=== PATIENT | female | born 1930 | race Caucasian/White ===

== ENCOUNTER 2020-04-25 08:59 | Inpatient (IN) | payer OTHER ==
[~2020-04-25] VITALS: Ht 162.6 cm; Wt 72.6 kg
--- NOTE | ~2020-04-25 | EMS ---
[address] [address] EMS Patient Care Report Name: BINA RUEDA Room #: 170-3 ADM IN M.R.#: [id number] Admission: 04/25/20 Attend Phys: Jered Lau MD Discharge: Date of : [birth year] Report #: [id number] THIS REPORT FOR: //name// Report Transmitted: 04/25/2020 15:32 EMS Care Summary [facility] MED-ACT Incident [id number] @ 04/25/2020 08:20 Incident Location [id number] [place] [address] Patient BINA RUEDA Female, 89 Years 1930 Patient Address [address] [place] [address] Patient History Type 2 Diabetes, Patient Allergies Penicillin allergy, Patient Medications Eliquis, Atorvastatin, Chief Complaint "I hurt my back." Disposition Transported No Lights/Todd Dispatch Reason Falls Transported To [facility] Narrative Upon arrival to the scene, found the pt in the care of air liaison and special staff and sitting in a wheelchair outside her room. Pt informed crews that she was sitting on the [address] [address] EMS Patient Care Report Name: BINA RUEDA Room #: 170-3 ADM IN Mahi.#: [id number] Admission: 04/25/20 Attend Phys: Jered Lau MD Discharge: Date of : [birth year] Report #: [id number] edge of her bed and slid off. She c/o lower back pain. Staff found the pt supine on the floor when the came in to check on her. Pt was not on the floor for very long. Pt denied any loss of consciousness. Pt denied any head or neck pain. Pt denied hitting her head. Pt was assessed and assisted from the wheelchair to the stretcher. V/S obtained. Pt was secured to the stretcher. Stretcher was secured in ambulance. [facility]OM to [facility] with pt information only. Upon arrival to [facility], pt was taken to room 3 via stretcher. Pt was transferred from stretcher to hospital bed via sheet drag. Verbal report given to RN and transfer of care was completed. Initial Vitals @08:37P: 46,SpO2: 95, @08:42P: 195,SpO2: 97, @08:43P: 106,BP: 110/62,SpO2: 97, @08:38P: 58,R: 16,BP: 124/65,Pain: 4/10,GCS: 15,Temp: 98F,SpO2: 93,Revised Trauma: 12, @08:42P: 95,SpO2: 97, @08:42P: 167, Assessments @08:33MENTAL:No Abnormalities,SKIN:HEENT:Head/Face: No Abnormalities,Neck/Airway: No Abnormalities,LUNG SOUNDS:ABDOMEN:PELVIS//GI:EXTREMITIES:PULSE:NEURO:No Abnormalities, Impression Back Pain Procedures @08:36Surgical Mask on PatientResponse: Unchanged Timeline 08:19,Call Received 08:19,Psap Call 08:20,Dispatched 08:22,En Route 08:27,On Scene 08:31,At Patient 08:36,Surgical Mask on Patient,Response: Unchanged 08:37,BP: / M,PULSE: 46,RR: R,SPO2: 95 Ox,ETCO2: ,BG: ,PAIN: ,GCS: , 08:38,BP: 124/65 M,PULSE: 58,RR: 16 R,SPO2: 93 Ox,ETCO2: ,BG: ,PAIN: 4,GCS: 15, 08:39,Depart Scene 08:42,BP: / M,PULSE: 195,RR: R,SPO2: 97 Ox,ETCO2: ,BG: ,PAIN: ,GCS: , 08:42,BP: / M,PULSE: 167,RR: R,SPO2: Ox,ETCO2: ,BG: ,PAIN: ,GCS: , 08:42,BP: / M,PULSE: 95,RR: R,SPO2: 97 Ox,ETCO2: ,BG: ,PAIN: ,GCS: , [facility] [address] [place] [address] EMS Patient Care Report Name: BINA RUEDA Room #: 170-3 ADM IN M.R.#: [id number] Admission: 04/25/20 Attend Phys: Jered Lau MD Discharge: Date of : [birth year] Report #: [id number] 08:43,BP: 110/62 M,PULSE: 106,RR: R,SPO2: 97 Ox,ETCO2: ,BG: ,PAIN: ,GCS: , 08:53,At Destination 09:11,Call Closed Disclaimer v1.1 Copyright 2020 [employer] This EMS Care Summary contains data elements from the applicable legal record (which may be displayed differently). It is designed to provide pertinent information for the following purposes: continuity of care, clinical quality, and state data reporting. The complete legal record is available to ED staff and administrators of the receiving hospital in [employer] Patient Tracker. All data is provided "as is."
[~2020-04-25 08:59] MED LIST: ADULT LOW DOSE81 MG PO; B-COMPLEX-VITA1 EACH PO; COLACE100 MG PO; COZAAR 50 MG TA50 M2 PO; COZAAR100 MG PO; DIABETA 5MG TABL5 MG PO; DIOVAN HCT 3201 EAC1; GLIPIZIDE ER5 MG PO; GLUCOPHAGE1000 MG PO; GLUCOPHAGE500 MG PO; GLUCOTROL5 MG PO; HIBICLENS120 ML TP; HYDREA 500 MG500 M1 PO; HYDREA500 MG PO; LEVOTHYROXIN0.025 MG PO; LIPITOR10 MG PO; LISINOPRIL-HCT1 EACH PO; METOCLOPRAMIDE10 MG PO; MIRALAX17 GM PO; MOBIC7.5 M1 PO; MOBIC7.5 MG PO; MOM; NEURONTIN 300300 M1 PO; PRESERVISION L1 EACH PO; PROTONIX40 M1 PO; PROZAC 20 MG20 MG PO; SENOKOT-S1 TA1 PO; SIMVASTATIN40 MG PO; TRIAMCINOLONE A15 G1 TP; UREA CREAM 40%1 TUBE TP; ZOCOR 10 MG TAB10 MG PO
[2020-04-25 09:01] VITALS: BP 143/77
[2020-04-25] MEDS ORDERED: NOVOLOG100 UNIT/M SUBQ (09:58)
[2020-04-25] MEDS ORDERED: LIPITOR10 MG PO (09:59)
[2020-04-25] MEDS ORDERED: VITAMIN D21250 MC1 PO (09:59)
[2020-04-25] MEDS ORDERED: NORVASC5 MG PO (10:13)
[2020-04-25] MEDS ORDERED: VITAMIN C500 M1 PO (10:14)
[2020-04-25] MEDS ORDERED: CARVEDILOL12.5 MG PO (10:14)
[2020-04-25] MEDS ORDERED: NEURONTIN300 MG PO (10:14)
[2020-04-25] MEDS ORDERED: LEVEMIR100 UNIT/1 SUBQ (10:15)
[2020-04-25] MEDS ORDERED: BIOFREEZE118 ML TOP (10:15)
[2020-04-25 10:43] LABS: URINE BILIRUBIN NEGATIVE (Negative); URINE BLOOD NEGATIVE (Negative); URINE CLARITY CLEAR; URINE COLOR YELLOW; URINE GLUCOSE-RANDOM* 1+ (Negative); URINE KETONES 1+ (Negative); URINE LEUKOCYTES-REFLEX NEGATIVE (Negative); URINE NITRITE-REFLEX NEGATIVE (Negative); URINE PROTEIN (DIPSTICK) TRACE (Negative); URINE SPECIFIC GRAVITY 1.015 (1.005-1.035); URINE UROBILINOGEN 0.2 E.U./dl (0.2-1.0)
[2020-04-25 10:52] LABS: ABSOLUTE NEUTROPHILS 12.9 thou/uL (1.4-8.2); BASOPHILS 0.6 % (0.0-2.0); EOSINOPHILS 1.1 % (0.0-3.0); HEMATOCRIT 46.4 % (37.0-47.0); HEMOGLOBIN 15.3 gm/dL (12.0-15.0); LYMPHOCYTES 5.6 % (24.0-44.0); MCH 28.1 pg (26.0-34.0); MCHC 33.1 g/dL (28.0-37.0); MCV 84.9 fL (80.0-100.0); MONOCYTES 4.8 % (1.0-8.0); PLATELET COUNT 431 thou/uL (150-400); POLYS 87.9 % (36.0-66.0); RBC 5.46 mil/uL (4.20-5.00); RDW 16.1 % (10.5-14.5); WBC 14.7 thou/uL (4.0-11.0)
[2020-04-25 11:38] LABS: CALCIUM 9.4 mg/dL (8.5-10.1); CREATININE 1.6 mg/dL (0.6-1.0); POTASSIUM 3.4 mmol/L (3.5-5.1)
[2020-04-25 11:44] LABS: ALBUMIN 3.7 g/dL (3.4-5.0); TOTAL BILIRUBIN 0.7 mg/dL (0.2-1.0); TOTAL PROTEIN 6.8 g/dL (6.4-8.2)
[2020-04-25 14:06] LABS: CSF GLUCOSE 87 mg/dL (40-70)
[2020-04-25 14:25] LABS: CSF CLARITY CLEAR; CSF COLOR COLORLESS; CSF RBC 0 /mm3; CSF WBC 2 /mm3 (0-10); VOLUME 6 ml
--- NOTE | 2020-04-25 14:54 | NUR ---
89 year old female admitted via EMS from [facility] for an accidental slip and fall out of bed. She was moving for the wheelchair and missed and ended up hitting her bottom on the ground. She complains of low back pain. This is not a new complaint for her as she does have chronic low back pain but the fdc wanted her evaluated. Patient complains of moderate to severe continuous low back pain made worse with palpation. The patient has been admitted with Encephalopathy, Back contusion, Leukocytosis, Recurrent falls, ARF and Hypokalemia. COVID 19 Antigen NEGATIVE on 04-25-1149 and COVID 19 PRC pending on 04-25-20 at 1151. Lumbar puncture obtained after request from the hospitalist while in the ED. NOTE: PT/OT/DICTATING MACHINE TYPIST orders in on 04-25-20. Because of elevated HR and WBC rate patient was placed on IV ABT's and IV fluids. The authorized contact is the daughter Yamini Olson at [phone]. Called and spoke with Yamini and introduced role of case management. Plan to return to [facility] as probable skilled first prior to return to LTC. CM will follow for discharge needs.
[2020-04-25 15:14] LABS: FOLIC ACID 10.3 ng/mL (8.6-58.9)
--- NOTE | 2020-04-25 20:05 | NUR ---
UPON TAKING OVER PATIENT, REYNA CATHETER NOTED IN PLACE
[2020-04-25 21:56] VITALS: BP 105/86
--- NOTE | 2020-04-25 21:57 | NUR ---
HAND OFF TOOL SENT
--- NOTE | 2020-04-25 22:03 | NUR ---
PER GUSTAVO, MRI CAN WAIT FOR TOMORROW DAY SHIFT. SOCIAL WORK LECTURER NOTIFIED
[2020-04-25 22:49] VITALS: BP 105/86
[2020-04-25 23:04] VITALS: BP 146/71
--- NOTE | 2020-04-26 03:24 | NUR ---
Pt. admission and history is completed as best that can be. Pt. is disoriented times four and thus is a poor historian. She has been awake all night and will talk outloud at people that are not in the room. She also tries to scoot herself out of the bed. Pt. has been observed putting her legs up over or throuigh the siderails. Bilateral restraints in place and bed alarm is on.
[2020-04-26 05:48] LABS: ABSOLUTE NEUTROPHILS 11.8 thou/uL (1.4-8.2); BASOPHILS 0.6 % (0.0-2.0); EOSINOPHILS 0.5 % (0.0-3.0); HEMOGLOBIN 14.2 gm/dL (12.0-15.0); LYMPHOCYTES 8.8 % (24.0-44.0); MCH 27.7 pg (26.0-34.0); MCHC 32.3 g/dL (28.0-37.0); MCV 85.8 fL (80.0-100.0); MONOCYTES 4.9 % (1.0-8.0); PLATELET COUNT 414 thou/uL (150-400); POLYS 85.2 % (36.0-66.0); RBC 5.13 mil/uL (4.20-5.00); RDW 16.5 % (10.5-14.5); WBC 13.9 thou/uL (4.0-11.0)
[2020-04-26 05:56] LABS: CALCIUM 8.9 mg/dL (8.5-10.1); CREATININE 1.4 mg/dL (0.6-1.0); POTASSIUM 3.4 mmol/L (3.5-5.1)
--- NOTE | 2020-04-26 06:52 | NUR ---
Pt. arrived to the unit from the emergency department in soft wrist restraints. She is disoriented times four and is very restless. Bed alarm is on.
[2020-04-26 07:20] VITALS: BP 150/84
--- NOTE | 2020-04-26 12:06 | HC ---
[facility] [place] [place] [address] CONSULTATION Name: BINA RUEDA Room #: 451-P ADM IN M.R.#: [id number] Admission: 04/25/20 Attend Phys: Jered Lau MD Discharge: Date of : [birth year] Report #: [id number] THIS REPORT FOR: cc: Abhilash Cobian MD,Abhilash Toscano,Luis Miguel Rodriguez MD ~ DATE OF SERVICE: 04/25/2020 CHIEF COMPLAINT: Lower extremity ulcerations. HISTORY OF PRESENT ILLNESS: This is an 89-year-old female patient who was admitted to the Emergency Department. She has had a slip and fall out of bed. She is moving from a wheelchair and missed and ended up falling on the floor. She has had some change in her mental status that her daughter thought had occurred over the last 2 weeks. She is normally alert, conversant and is now slurring her speech and not tracking conversation. I have been asked to see her with regard to wound care, both lower legs, left heel and left elbow. PAST MEDICAL HISTORY: Positive for history of small-bowel obstruction in September of 2010, history of pancreatitis, hypertension, coronary artery disease, status post cardiac bypass with a valve replacement, type 2 diabetes mellitus, previous hysterectomy, appendectomy, and cholecystectomy. MEDICATIONS: Include Senokot, insulin, vitamin B12, Lipitor, Norvasc, Coreg, vitamin C, Neurontin, Levemir, and Biofreeze. ALLERGIES: LATEX, PENICILLIN, SULFA, AND HYDROCODONE. SOCIAL HISTORY: The patient lives in a nursing care facility. No current history of alcohol or tobacco use. FAMILY HISTORY: Noncontributory. REVIEW OF SYSTEMS: Limited as the patient is unable to really provide any specific details other than what is already included in the history of present illness due to her change in mental status. PHYSICAL EXAMINATION: VITAL SIGNS: At this time include temperature 36.6, pulse 82, respiratory rate 16, and blood pressure 155/76. GENERAL: This is a somewhat chronically ill-appearing female patient who appears to be in mild discomfort. HEENT: Head normocephalic, atraumatic. Nose and throat clear. NECK: Supple. LUNGS: Clear. [facility] [address] [place] [address] CONSULTATION Name: BINA RUEDA [facility] ..#: [id number] Admission: 04/25/20 Attend Phys: Jered Lau MD Discharge: Date of : [birth year] Report #: [id number] ABDOMEN: Soft. Incision in the perineal region demonstrates ulceration. This area is wet and she is incontinent of urine. There is yeast dermatitis in the skin folds of the perineal area. Sacral gluteal areas are clear without ulceration. EXTREMITIES: Lower extremities demonstrate trace edema. She has 2 ulcerations to the right pretibial region and 1 to the left. These may be traumatic in origin. They are healthy, clean, granulating and relatively shallow. She also has a small ulceration on her left heel that may be pressure related versus possibly traumatic. She also has an abrasion and contusion to the left elbow. None of these areas are infected. NEUROLOGIC: The patient is awake. She is disoriented. She appears to be moving symmetrically. LABORATORY DATA: Laboratory studies include sodium is 139, potassium 3.4, chloride 104, CO2 of 26, BUN 17, creatinine 1.6, and glucose 113. Albumin is 3.7. White blood cell count 14.7 with a hemoglobin of 15.3. CLINICAL IMPRESSION: 1. Multiple ulcerations by both pretibial regions and left heel. This may be traumatic versus venous. The heel may be pressure versus once again traumatic. 2. Traumatic wound to the left elbow. 3. Altered mental status, etiology is indeterminate. With elevated white blood cell count one might consider an infectious source. She has possibly very mild cellulitis to the right pretibial region, but I doubt that this would be enough to cause the elevation in her white count. No other change in her mental status. She is being followed and worked up by hospitalist service. 4. Yeast dermatitis to the perineal area. 5. Diabetes mellitus. RECOMMENDATIONS: At this point in time, we will recommend nystatin cream to the perineal region twice daily. Recommend gentamicin ointment, Xeroform, and Kerlix to the ulcers of the lower extremities and left heel. She will need PRAFO boots. We will recommend gentamicin, Xeroform and bordered foam to the left elbow. She will need q. 2 turning and repositioning while in bed. All questions have been answered. I have discussed findings with the patient's daughter who is with her here in the Emergency Department as well. I appreciate being asked to see her in consultation. <ELECTRONICALLY SIGNED> By: Luis Miguel Toscano MD 04/26/20 1206 1704 1819 Luis Miguel Toscano MD /nt
--- NOTE | 2020-04-26 14:43 | NUR ---
PT ADMITTED RELATED TO AMS AND FALL. CM REVIEWED CHART AND SPOKE WITH CARE TEAM. CM CALLED AND SPOKE WITH PT'S DTR/DPOA KENNY AYALA THIS DAY. SHE INDICATED THAT SHE AND HER SISTER JAYA ARE BOTH LISTED DPOA. SHE PROVIDED COPY OF DOCUMENT. PLACED IN CHART AND FAXED TO [facility] THEY HAD LOST IT. DTR INDICTED THAT PT HAD BEEN WC BOUND WAX MOLDER AND NEEDED ASSIST WITH TRANSFERS WAX MOLDER. SHE INDICATED THAT PT HAD BEEN A&O X3-4 MOST OF THE TIME. DTR INDICATED THAT SHE HAD PAID FOR A PRIVATE NURSE TO BE WITH PT IN THE PAST BUT HAD STOPPED DUE TO COVID. DTR EXPRESSED SOME FRUSTRATION WITH [facility] AND THAT SHE WILL FOLLOW UP WITH THE STAFF THERE TO ADDRESS ISSUES. SHE ANTICIPATES PT RETURNING THERE ONCE MEDICALLY STABLE. CLINICAL UPDATE SENT TO FACILITY. PT HAD MRI AND EEG DONE THIS DAY. CM TO FOLLOW INDICATED WITH DC PLANNING.
--- NOTE | 2020-04-26 14:53 | HC ---
[facility] [place] [address] [place] [address] CONSULTATION Name: MARYBETHEDUIN BLANCHARDFADY Linder Room #: 451-P ADM IN M.R.#: [id number] Admission: 04/25/20 Attend Phys: Jered Lau MD Discharge: Date of : [birth year] Report #: [id number] THIS REPORT FOR: cc: Abhilash Cobian MD,Abhilash Adrian,Dereck Riley MD ~ DATE OF SERVICE: 04/25/2020 HISTORY OF PRESENT ILLNESS: This is an 89-year-old female patient who was evaluated for altered mental status. This patient is completely confused and is unable to provide any history. She is talking completely irrelevantly. I briefly talked to Dr. Lau and we will talk to him tomorrow again, that conversation was before I saw the patient. The patient as per records [facility] and she had multiple falls recently. She did hit her head. She had some hematoma there. Prior to that, she was not having altered mental status like this. REVIEW OF SYSTEMS: I called the patient's daughter and took part of the review of systems from her and part from the records. She has a history of pancreatitis, hypertension, coronary artery bypass, colon cancer. Colon cancer really put her down. She has a history of hypothyroidism. She has a rash in the leg, which according to the daughter is going on for some time and is nothing new. She denies any history of Alzheimer disease. Review of systems indicates recurrent fall and this was relevant 14-point review of systems. She does have a history of hypertension, rotator cuff tear, thrombocytopenia, cholecystectomy, hysterectomy, diabetes, bypass surgery. PAST MEDICAL HISTORY: Negative for any Alzheimer disease, in fact she had multiple infections including Staph infections in the past. FAMILY HISTORY: Unremarkable. SOCIAL HISTORY: She was never a drinker or smoker according to the daughter. PHYSICAL EXAMINATION: The patient's examinations indicate that she is alert, but she is talking completely irrelevantly. She appeared to be euphoric. She does not know what month it is. She does not follow any commands for me to do any good neurological examination. I tried cranial nerve and neuromuscular examination that was almost impossible to carry out. Cardiac and respiratory examinations appear noncontributory. She did have a CT and I reviewed that and that showed atrophy. GFR is only 30, but it has been low as far as back in 2012. There is nothing new. IMPRESSION: Very difficult to form in this patient. She has no contraindication for MRI. Initially, we will do an MRI of the brain to see if [address] [address] CONSULTATION Name: BINA RUEDA Room #: 451-P [facility] IN ..#: [id number] Admission: 04/25/20 Attend Phys: Jered Lau MD Discharge: Date of : [birth year] Report #: [id number] she has any stroke, which can cause Wernicke's aphasia, but I am not sure if she is typical for that either. I need to get an EEG to make sure there is no seizure activity. We will check her vitamins and go ahead and give her some extra vitamins. Because of ____ and I tried to counseling aide the patient on everything, but she was not able to understand. Therefore, I called the patient's daughter and counseled her and she is agreeable with this test. In fact, she is pretty concerned. I spent more than 50 minutes of time today taking care of this patient and majority was spent reviewing her records, counseling, and coordinating. <ELECTRONICALLY SIGNED> By: Dereck Adrian MD 04/26/20 145 58 21 Dereck Adrian MD /nt
--- NOTE | 2020-04-26 19:22 | NUR ---
Patient was pleasant today. Restraints removed this morning. Was alerted to self, but did have jumbled speech when speaking of situation and place. Patient did have moments of clarity, with moments of being able to make needs known. Patient did shift occassionally in bed, however did not attempt to get out of the bed. Medications were given to calm patient prior to MRI. Medication did cause patient to be lethargic and tired for most the day. She did wake towards end of shift and was able to make needs known. Wound care completed with pictures taken. Need order for heel protector boots bilaterally.
--- NOTE | 2020-04-27 04:01 | NUR ---
Pt. rested quietly during the night when checked on during frequent rounds. She still continues to be confused. Has not attempted to get up out of the bed. Bed alarm is on.
--- NOTE | 2020-04-27 07:25 | EKG ---
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: kranthi : [id number] Requested By: Amita Nunez Order Number: [id number] MD: Camilo Simon Measurements Intervals [place] Rate: 77 P: 46 AL: 179 QRS: -38 QRSD: 76 T: QT: 430 QTc: 487 Interpretive Statements Sinus rhythm Multiple premature complexes, vent & supraven Left axis deviation Anterior infarct, old Nonspecific T abnormalities, lateral leads No previous ECG available for comparison Electronically Signed On 04-27-2020 7:25:15 CERTIFIED DIETARY MANAGER by Camilo Smion [email or web address] <ELECTRONICALLY SIGNED> By: Camilo Simon MD, [facility] 04/27/2025 150 01 Camilo Simon MD, [facility] /EPI
[2020-04-27 07:36] VITALS: BP 120/61
[2020-04-27 10:01] LABS: HEMATOCRIT 45.1 % (37.0-47.0); HEMOGLOBIN 13.9 gm/dL (12.0-15.0); MCH 27.3 pg (26.0-34.0); MCHC 30.9 g/dL (28.0-37.0); MCV 88.7 fL (80.0-100.0); RBC 5.08 mil/uL (4.20-5.00); WBC 13.9 thou/uL (4.0-11.0)
[2020-04-27 10:10] LABS: CALCIUM 8.9 mg/dL (8.5-10.1); POTASSIUM 3.6 mmol/L (3.5-5.1)
--- NOTE | 2020-04-27 11:15 | NUR ---
WOUND CARE F/U; ROUNDING WITH MICHAEL GODFREY. THE EXTREMITY AND WOUNDS SHOW IMPROVMENT TODAY. THE GROIN SHOWS IMPROVEMENT WELL USING NYSTATIN. THE LEFT ELBOW HAS IMPROVED WELL. RECOMMENDATIONS; CONTINUE CURRENT ORDERS WITH GENTAMYCIN OINTMENT, XEROFORM, ABD, KERLIX. DISCUSSED WITH BRANDEE
--- NOTE | 2020-04-27 15:09 | NUR ---
CARE TEAM INDICATED THAT PT IS PROGRESSING TOWARD GOAL OF DISCHARGE. PT CONTINUES ON IV CEFTRIAXONE. PT AND OT SAW PT THIS DAY. PLAN IS FOR PT TO RETURN TO [facility] ONCE MEDICLALLY STABLE. CM TO FOLLOW INDICATED WITH DC PLANNING.
[2020-04-27] MEDS ORDERED: ELIQUIS5 MG PO (16:10)
--- NOTE | 2020-04-27 16:15 | NUR ---
ASSUMED CARE OF PATIENT AT SHIFT CHANGE. ASSESSMENT CHARTED. MEDICATIONS ADMINISTERED PER EMAR. VSS. PATIENT IS ALERT TO SELF AND PLACE; PLEASANT AND COOPERATIVE. PT/OT WORKED W THIS PATIENT AND TOLERATED WELL. PATIENT IS X1 ASSIST AND REQUIRES PROMPTS. IV ABX STILL INFUSING W NO ISSUES. WOUND CARE COMPLETE BY WOUND CARE NURSE. PATIENT IS MAKING MEDICAL PROGRESS. FALL PRECAUTIONS IN PLACE; NEAR NURSES STATION. WILL CONTINUE TO MONITOR AND FOLLOW PLAN OF CARE.
[2020-04-27 19:51] VITALS: BP 119/59
--- NOTE | 2020-04-28 04:47 | NUR ---
Assumed pt care at 1900. A/OX3,able to make needs known. C/o pain to feet medicated with Tylenol with relief reported. Dsgs to BLE/Left elbow C/D/I.Pt able to reposition herself in bed as needed w/o assist. Cason patent to DD. Pt placed NPO from midnight for renal ultrasound order.IVF infusing via LAC w/o any problems. Fall precautions in place,frequent checks on pt.
[2020-04-28 05:15] LABS: HEMATOCRIT 38.6 % (37.0-47.0); HEMOGLOBIN 12.3 gm/dL (12.0-15.0); MCHC 31.9 g/dL (28.0-37.0); MCV 87.6 fL (80.0-100.0); RBC 4.41 mil/uL (4.20-5.00); RDW 16.9 % (10.5-14.5); WBC 9.8 thou/uL (4.0-11.0)
[2020-04-28 05:22] LABS: CALCIUM 8.4 mg/dL (8.5-10.1); MAGNESIUM 1.9 mg/dL (1.8-2.4); POTASSIUM 3.4 mmol/L (3.5-5.1)
[2020-04-28 07:13] VITALS: BP 101/53
[2020-04-28] MEDS ORDERED: TRANSDERM-SCOP1 EACH TRANSDERM (08:58)
--- NOTE | 2020-04-28 14:32 | NUR ---
Assumed pt care this am, more alert today. VS stable, was able to stay on the recliner and have her meals, daughter at the bed side. Renal JON done in the am, wound care done and dressing changes done. POC followed with no signs or verbalizations of distress noted.
--- NOTE | 2020-04-28 15:15 | NUR ---
PT HAD RENAL ULTRASOUND DONE THIS DAY. MORGAN MET WITH PT AND DTR AT BEDSIDE THIS DAY. DTR CONFIRMED THAT PLAN IS FOR PT TO RETURN TO [facility] ONCE MEDICALLY STABLE. SHE INDICATED THAT SHE WILL TRY TO SPEAK WITH STAFF AT [facility] TO HAVE THEIR PRIVATE NURSE BE ABLE TO COME INTO FACILITY AGAIN. MORGAN CALLED AND SPOKE WITH [facility]ANCE IN ADMISSIONS AND SHE INDICATED THAT SHE IS ON FOR WEEKEND ADMISSIONS. SHOULD PT BE MEDICALLY STABLE TO [place] TO [facility] THIS WEEKEND CONTACT CHANCE AT FAX: .
--- NOTE | 2020-04-28 15:26 | NUR ---
FAXED CLINICAL UPDATE TO [facility] RECEIVED CONFIRMATION AND LEFT MSG WITH CHANCE IN ADM.
[2020-04-28 16:30] VITALS: BP 107/61
[2020-04-28 20:00] VITALS: BP 110/67
[2020-04-29 06:26] LABS: CALCIUM 8.3 mg/dL (8.5-10.1); CREATININE 1.6 mg/dL (0.6-1.0); POTASSIUM 3.3 mmol/L (3.5-5.1)
--- NOTE | 2020-04-29 06:50 | NUR ---
VSS-AFEBRILE. LUNGS CLEAR-ROOM AIR. FORGETFUL BUT PLEASANT AND COMPLIANT. TURNS SELF IN BED. FALL PRECAUTIONS IN PLACE.
[2020-04-29 07:13] VITALS: BP 101/53
[2020-04-29 16:00] VITALS: BP 134/82
--- NOTE | 2020-04-29 18:15 | NUR ---
Assumed pt care this am, Vs stable. wound care and dressing change done. Pain is managed with medications. Sat atthe recliner for most of the day, FC in place draining light yellow urine. Daughter at the bedside, POC followed with no signs or verbalizations of distress noted. Endorsed to the night nurse.
--- NOTE | 2020-04-30 07:24 | NUR ---
VSS-AFEBRILE. RESTED WELL THROUGH NIGHT WITH FEW NEEDS. SPORADIC CONFUSION, PULLED OUT IV THIS MORNING. LUNGS CLEAR-ROOM AIR. FALL PRECCAUTION IN PLACE.
[2020-04-30 07:58] VITALS: BP 113/76
[2020-04-30 08:26] LABS: ABSOLUTE NEUTROPHILS 6.4 thou/uL (1.4-8.2); BASOPHILS 1.2 % (0.0-2.0); EOSINOPHILS 5.3 % (0.0-3.0); MCH 28.7 pg (26.0-34.0); MCHC 34.1 g/dL (28.0-37.0); MCV 84.1 fL (80.0-100.0); MONOCYTES 5.7 % (1.0-8.0); PLATELET COUNT 457 thou/uL (150-400); POLYS 77.8 % (36.0-66.0); RBC 4.88 mil/uL (4.20-5.00); RDW 16.7 % (10.5-14.5); WBC 8.2 thou/uL (4.0-11.0)
[2020-04-30 09:05] LABS: CALCIUM 8.9 mg/dL (8.5-10.1); CREATININE 1.3 mg/dL (0.6-1.0); MAGNESIUM 1.8 mg/dL (1.8-2.4); POTASSIUM 3.4 mmol/L (3.5-5.1); TOTAL BILIRUBIN 0.5 mg/dL (0.2-1.0); TOTAL PROTEIN 6.4 g/dL (6.4-8.2)
[2020-04-30 15:29] VITALS: BP 127/77
--- NOTE | 2020-04-30 18:38 | NUR ---
PT A&OX2-3 AND SUNDOWNS, VSS, NO APPARENT PAIN. DRESSING CHANGE COMPLETED. REYNA INTACT. NEW IV PLACED RIGHT FA. PATIENT ON ROOM AIR, NO SIGNS OF DISTRESS. WILL CONTINUE TO MONITOR.
[2020-04-30 20:00] VITALS: BP 123/69
--- NOTE | 2020-05-01 02:29 | NUR ---
CARE ASSUMED 1900. PT CALM AND COOPERATIVE. APPROPRIATE , WITH INTERMITTENT CONFUSION. PT KEEP STATING THAT SHE WAS TRANSFERRED FROM [facility] AND SHE WOULD LIKE TO GO BACK. NO PAIN REPORTED. VITALS STABLE. WILL CONTINUE TO MONITOR AND FOLLOW POC.
[2020-05-01 07:11] VITALS: BP 140/89
--- NOTE | 2020-05-01 13:09 | NUR ---
ON-GOING ASSESSMENT: CM REVIEWED CHART AND SPOKE WITH ATTENDING WHO REPORTS PT WILL LIKELY DISCHARGE TO SNF TOMORROW. CM NOTIFIED RESIDENTIAL HOUSEKEEPER TO PLEASE UPDATE [facility] AND SEND UPDATES. MORGAN SPOKE WITH CHANCE IN ADMISSIONS EARLIER TODAY WHO REPORTS THEY DO NOT NEED ANOTHER COVID TEST AND THEY ONE FROM 04/25 IS FINE AND THEY HAVE A WAIVER FOR AUTH. PLANS FOR POSSIBLE DISCHARGE TOMORROW TO [facility].
--- NOTE | 2020-05-01 14:13 | NUR ---
NOTIFIED PT'S DTR (KENNY) THAT DISCHARGE HAS BEEN PUT ON HOLD FOR TODAY, WILL PLAN ON DC TOMORROW.
[2020-05-01 15:25] VITALS: BP 131/78
--- NOTE | 2020-05-01 19:16 | NUR ---
Assumed pt care this am. vs stable was margo to stay on the recliner for most of the day. Diet and medications are dtolerated well. POC followed with no signs or verbalizations of distress noted. FC in place draining light yellow urine. endorsed to the night nurse.
[2020-05-01 20:00] VITALS: BP 136/75
--- NOTE | 2020-05-02 06:43 | NUR ---
Assumed pt care at 1900. A/OX2-3, with forgetfulness noted able to voice needs. VSS. C/o pain to Right foot. Cason patent to DD with yellow urine. Dsg to Right heel done as ordered w/o any complaints voiced. Fall precuations in place,continues to monitor pt.
[2020-05-02] MEDS ORDERED: MIRALAX17 GM PO (08:06)
[2020-05-02] MEDS ORDERED: ELIQUIS2.5 MG PO (08:06)
[2020-05-02] MEDS ORDERED: HUMALOG100 UNIT/1 SUBQ (08:12)
[2020-05-02 09:08] VITALS: BP 121/56
--- NOTE | 2020-05-02 11:32 | NUR ---
Assumed pt care this am, Vs stable. FC removed, dient and medications are tolerated well. Blood sugar checks done, medications given as per emar. Daughter at the bed side, pt is to back to facility. Heel protectors were worn at all time while in the bed, had her meals on the recliner. POC followed with no signs or verbalizations of distress noted.
--- NOTE | 2020-05-02 11:58 | NUR ---
CARE TEAM INDICATED THAT PT IS MEDICALLY STABLE TO DISHCARGE BACK TO [facility] SKILLED THIS DAY. CM FAXED ORDERS TO FACILITY. CHART COPY ORDERED. PT AND DTR AT BEDSIDE NOTIFIED VAN PICKUP ARRANGED FOR [phone]. NURSE GIVEN NUMBER FOR REPORT. NO OTHER CM INTERVENTION INDICATED. CASE CLOSED.
--- NOTE | 2020-05-04 18:37 | EEG ---
[facility] [place] [address] ELECTROENCEPHALOGRAM Name: BINA RUEDA Room #: 451-P [facility] IN M.R.#: [id number] Admission: 04/25/20 Attend Phys: Jered Lau MD Discharge: 05/02/20 Date of : [birth year] Report #: [id number] THIS REPORT FOR: //name// DATE OF SERVICE: 04/26/2020 This patient is being evaluated for altered mental status. The EEG was done by placing the electrode by standard 10-20 system of electrode placement. Both referential and sequential montages were used for recording. Background activity is difficult to determine because the patient was not able to cooperate and kept moving and it does look like it is about 8 Hz and 10 microvolt. Photic stimulation is unremarkable. The patient became drowsy and that is associated with bilateral slowing. Throughout the record, no active epileptiform activity was noticed. IMPRESSION: This patient's EEG is difficult to interpret because the patient's EEG is masked by a lot of artifact, but does not appear to be showing any active epileptiform activity ____ and that is a nonspecific finding, which can occur with encephalopathy effect of psychotropic medication, dementia, etc. Clinical correlation is recommended. <ELECTRONICALLY SIGNED> By: Dereck Adrian MD 05/04/20 [id number] Dereck Adrian MD /nt
== END 2020-05-02 13:35 | DRG 871 ==
LOC: ER 08:59 → 4W 14:09 → EROBS 14:09 → 4W 22:54
PROVIDERS: Emergency Medicine; Internal Medicine; Nurse Practitioner; ADMIT Internal Medicine; ATTEND Internal Medicine
DX: A41.9 Sepsis, unspecified organism (principal); G93.41 Metabolic encephalopathy; L97.429 Non-pressure chronic ulcer of left heel and midfoot with unspecified severity; L03.115 Cellulitis of right lower limb; L97.919 Non-pressure chronic ulcer of unspecified part of right lower leg with unspecified severity; N17.9 Acute kidney failure, unspecified; E11.621 Type 2 diabetes mellitus with foot ulcer; E87.6 Hypokalemia; E03.9 Hypothyroidism, unspecified; D72.829 Elevated white blood cell count, unspecified; I25.10 Atherosclerotic heart disease of native coronary artery without angina pectoris; L30.9 Dermatitis, unspecified; E55.9 Vitamin D deficiency, unspecified; S20.229A Contusion of unspecified back wall of thorax, initial encounter; T44.3X5A Adverse effect of other parasympatholytics [anticholinergics and antimuscarinics] and spasmolytics, initial encounter; W19.XXXA Unspecified fall, initial encounter; E11.22 Type 2 diabetes mellitus with diabetic chronic kidney disease; I12.9 Hypertensive chronic kidney disease with stage 1 through stage 4 chronic kidney disease, or unspecified chronic kidney disease; S51.002A Unspecified open wound of left elbow, initial encounter; N18.30 Chronic kidney disease, stage 3 unspecified; Z96.1 Presence of intraocular lens; Z20.822 Contact with and (suspected) exposure to COVID-19; Z95.1 Presence of aortocoronary bypass graft; Z85.038 Personal history of other malignant neoplasm of large intestine; Z90.710 Acquired absence of both cervix and uterus; Z90.49 Acquired absence of other specified parts of digestive tract; Z98.42 Cataract extraction status, left eye; Z98.41 Cataract extraction status, right eye; Z79.4 Long term (current) use of insulin; Z79.899 Other long term (current) drug therapy; Z88.5 Allergy status to narcotic agent; Z88.0 Allergy status to penicillin; Z88.2 Allergy status to sulfonamides; Z91.040 Latex allergy status; Y93.89 Activity, other specified; Y92.89 Other specified places as the place of occurrence of the external cause; Y99.8 Other external cause status
CPT/HCPCS: 10040

== ENCOUNTER → 2020-05-11 | Outpatient (CLI) | payer OTHER ==
[~2020-05-11] MED LIST changes: +BIOFREEZE118 ML TOP; +CARVEDILOL12.5 MG PO; +ELIQUIS2.5 MG PO; +ELIQUIS5 MG PO; +HUMALOG100 UNIT/1 SUBQ; +LEVEMIR100 UNIT/1 SUBQ; +NEURONTIN300 MG PO; +NORVASC5 MG PO; +NOVOLOG100 UNIT/M SUBQ; +TRANSDERM-SCOP1 EACH TRANSDERM; +VITAMIN C500 M1 PO; +VITAMIN D21250 MC1 PO
== END ==
LOC: HYPER 09:58
PROVIDERS: ATTEND Emergency Medicine
DX: E11.621 Type 2 diabetes mellitus with foot ulcer (principal); L89.622 Pressure ulcer of left heel, stage 2; L97.421 Non-pressure chronic ulcer of left heel and midfoot limited to breakdown of skin; E11.628 Type 2 diabetes mellitus with other skin complications; L25.9 Unspecified contact dermatitis, unspecified cause; R60.0 Localized edema; R41.82 Altered mental status, unspecified; G89.29 Other chronic pain; M06.9 Rheumatoid arthritis, unspecified; H91.90 Unspecified hearing loss, unspecified ear; I10 Essential (primary) hypertension; K59.00 Constipation, unspecified; I25.10 Atherosclerotic heart disease of native coronary artery without angina pectoris; E03.9 Hypothyroidism, unspecified; D69.6 Thrombocytopenia, unspecified; F41.9 Anxiety disorder, unspecified; F40.240 Claustrophobia; Z91.81 History of falling; Z79.4 Long term (current) use of insulin; Z79.899 Other long term (current) drug therapy; Z90.49 Acquired absence of other specified parts of digestive tract; Z90.710 Acquired absence of both cervix and uterus; Z98.49 Cataract extraction status, unspecified eye

== ENCOUNTER 2020-07-27 09:51 | Emergency (ER) | payer OTHER ==
[~2020-07-27] VITALS: Ht 152.4 cm; Wt 68.0 kg
--- NOTE | ~2020-07-27 | EMS ---
[address] [address] EMS Patient Care Report Name: BINA RUEDA Room #: DEP LIZZETTE Mitchell#: [id number] Admission: 07/27/20 Attend Phys: Discharge: 07/27/20 Date of : [birth year] Report #: [id number] THIS REPORT FOR: //name// Report Transmitted: 07/27/2020 14:17 EMS Care Summary [facility] MED-ACT Incident [id number] @ 07/27/2020 09:04 Incident Location [address] [place] [address] Patient BINA RUEDA Female, 89 Years 1930 Patient Address [address] [place] [address] Patient History Congestive Heart Failure (CHF),Hypertension (HTN),Stroke/CVA,Hyperlipidemia,Hyperthyroidism,Osteoarthritis,Atrial Fibrillation,Anemia,Chronic Kidney Disease,Type 2 Diabetes, Patient Allergies Codeine,Latex allergy,Penicillin allergy,Hydrocodone,Sulfa,Keppra,Adhesive Tape, Patient Medications Doxycycline, Carvedilol, Insulin, Atorvastatin, Gabapentin, Polyethlene Glycol, Eliquis, Chief Complaint "chest feels funny" Disposition Transported No Lights/[place] Reason Chest Pain (Non-Traumatic) Transported To [address] [address] EMS Patient Care Report Name: [facility]INA RUEDA [id number] Admission: 07/27/20 Attend Phys: Discharge: 07/27/20 Date of : [birth year] Report #: [id number] Narrative Arrived on scene to find alert pt sitting in wheelchair. Pt states that her chest and abdomen "don't feel right" but is unable to describe discomfort. She said this discomfort started about 2 weeks ago and she mentioned it to the facility Doctor when he did rounds this morning. wants pt to be transported to get more tests run. Facility staff states that pt is normally alert with mild confusion and she is currently at her normal mental status. Pt is poor historian when asked questions about her current condition and medical history. Pt denies increase in pain upon taking a deep breath, nausea/vomiting, pain elsewhere, headache, dizziness. Initial vitals, including 12-lead, and ASA administered on scene. Pt stood and turned to sit on cot and was transported to [facility]. Transfer of stable pt care made in room 11 to ER nurse. Initial Vitals @09:43P: 63,BP: 173/101,SpO2: 93, @09:19P: 65,SpO2: 92,VT Suspected: false @09:20P: 66,BP: 160/90,SpO2: 95, @09:14P: 65,R: 14,BP: 158/84,Pain: 2/10,Temp: 97.8F,SpO2: 91, Assessments @09:12MENTAL:Person Oriented,Time Oriented,Place Oriented,Event Oriented,SKIN:HEENT:LUNG SOUNDS:Left Upper: Distension,Right Upper: Distension,Left Lower: Distension,Right Lower: Distension,ABDOMEN:Left Upper: Distension,Right Upper: Distension,Left Lower: Distension,Right Lower: Distension,PELVIS//GI:EXTREMITIES:PULSE:NEURO: Impression Chest Pain / Discomfort Procedures @09:1912-Lead ECGResponse: UnchangedSucceeded@09:21Aspirin - 324 Milligrams (mg) - OralResponse: Unchanged@09:33Surgical Mask on PatientResponse: Unchanged Timeline 09:01,Call Received 09:01,Psap Call 09:04,Dispatched 09:04,En Route 09:08,On Scene 09:11,At Patient 09:14,BP: 158/84 M,PULSE: 65,RR: 14 R,SPO2: 91 Ox,ETCO2: ,BG: ,PAIN: 2,GCS: , 09:19,12-Lead ECG,Response: UnchangedSucceeded, 09:19,BP: / M,PULSE: 65,RR: R,SPO2: 92 Ox,ETCO2: ,BG: ,PAIN: ,GCS: , 09:20,BP: 160/90 M,PULSE: 66,RR: R,SPO2: 95 Ox,ETCO2: ,BG: ,PAIN: ,GCS: , 09:21,Aspirin - 324 Milligrams (mg) - Oral,Response: Unchanged 09:31,Depart Scene [facility] [address] [place] [address] EMS Patient Care Report Name: BINA RUEDA Room #: BREANA Mitchell#: [id number] Admission: 07/27/20 Attend Phys: Discharge: 07/27/20 Date of : [birth year] Report #: [id number] 09:33,Surgical Mask on Patient,Response: Unchanged 09:43,BP: 173/101 M,PULSE: 63,RR: R,SPO2: 93 Ox,ETCO2: ,BG: ,PAIN: ,GCS: , 09:44,At Destination 10:08,Call Closed Disclaimer v1.1 Copyright 2020 [employer] This EMS Care Summary contains data elements from the applicable legal record (which may be displayed differently). It is designed to provide pertinent information for the following purposes: continuity of care, clinical quality, and state data reporting. The complete legal record is available to ED staff and administrators of the receiving hospital in [facility]'s Patient Tracker. All data is provided "as is."
--- NOTE | 2020-07-27 10:01 | EKG ---
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 : 1930 Requested By: Roque Butler Order Number: [id number] MD: Cmailo Simon Measurements Intervals [place] Rate: 63 P: -57 LA: 174 QRS: -53 QRSD: 87 T: -16 QT: 433 QTc: 444 Interpretive Statements Sinus or ectopic atrial rhythm Inferior infarct, old Anterior infarct, old Lateral leads are also involved Baseline wander in lead(s) V2 Compared to ECG 04/26/2020 15:02:02 Ectopic atrial rhythm now present Sinus rhythm no longer present Left-axis deviation no longer present T-wave abnormality no longer present Myocardial infarct finding still present Electronically Signed On 07-27-2020 10:01:33 CDT by Camilo Simon [email or web address] <ELECTRONICALLY SIGNED> By: Camilo Simon MD, [facility] 07/27/20 [id number] [id number] Camilo Simon MD, [facility] /EPI
[2020-07-27 10:31] LABS: ABSOLUTE NEUTROPHILS 9.8 thou/uL (1.4-8.2); BASOPHILS 0.8 % (0.0-2.0); EOSINOPHILS 2.1 % (0.0-3.0); HEMATOCRIT 52.2 % (37.0-47.0); HEMOGLOBIN 17.2 gm/dL (12.0-15.0); LYMPHOCYTES 10.3 % (24.0-44.0); MCH 27.7 pg (26.0-34.0); MCHC 32.9 g/dL (28.0-37.0); MCV 84.1 fL (80.0-100.0); MONOCYTES 4.5 % (1.0-8.0); PLATELET COUNT 430 thou/uL (150-400); POLYS 82.3 % (36.0-66.0); RBC 6.21 mil/uL (4.20-5.00); RDW 16.8 % (10.5-14.5); WBC 11.9 thou/uL (4.0-11.0)
[2020-07-27 10:47] LABS: AMYLASE 46 U/L (25-115); ANION GAP 7 mmol/L (7-16); BUN 37 mg/dL (7-18); CALCIUM 9.5 mg/dL (8.5-10.1); CHLORIDE 106 mmol/L (98-107); CO2 26 mmol/L (21-32); GLUCOSE 236 mg/dL (74-106); LIPASE 116 U/L (73-393); POTASSIUM 4.5 mmol/L (3.5-5.1); SODIUM 139 mmol/L (136-145)
[2020-07-27 11:13] LABS: ALBUMIN 3.5 g/dL (3.4-5.0); MAGNESIUM 1.9 mg/dL (1.8-2.4); SGOT 15 U/L (15-37); SGPT 14 U/L (14-59); TOTAL BILIRUBIN 0.7 mg/dL (0.2-1.0); TOTAL PROTEIN 7.1 g/dL (6.4-8.2); TROPONIN-I <0.06 ng/mL (<0.06)
[2020-07-27 12:53] VITALS: BP 155/68
== END 2020-07-27 15:03 ==
LOC: ER 09:51
PROVIDERS: Emergency Medicine
DX: R07.89 Other chest pain (principal); I10 Essential (primary) hypertension; E11.9 Type 2 diabetes mellitus without complications; Z91.040 Latex allergy status; Z88.0 Allergy status to penicillin; Z88.5 Allergy status to narcotic agent; Z88.2 Allergy status to sulfonamides; Z88.8 Allergy status to other drugs, medicaments and biological substances; Z79.899 Other long term (current) drug therapy; Z90.49 Acquired absence of other specified parts of digestive tract